=== PATIENT | male | born 1995 | race Caucasian/White ===

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

== ENCOUNTER 2017-01-14 00:30 | Emergency (ER) | payer SELFPAY ==
[~2017-01-14] VITALS: Ht 177.8 cm; Wt 134.7 kg
[2017-01-14] MEDS ORDERED: KETOROLAC 30 MG/1 ML ONE (02:17)
[2017-01-14] MEDS ORDERED: ONDANSETRON 2MG/ML, 2ML ONE (02:17)
[2017-01-14] MEDS ORDERED: MORPHINE SULFATE 4 MG/ML, 1ML ONE (02:17)
[2017-01-14 02:24] LABS: HEMATOCRIT 43.3 % (39.2-51.8); HEMOGLOBIN 14.9 g/dL (13.7-18.0); WHITE BLOOD COUNT 9.8 x10^3/uL (4.5-13.2)
[2017-01-14] MEDS ORDERED: KETOROLAC 30 MG/1 ML IVPush ONE (02:30)
[2017-01-14] MEDS ORDERED: SODIUM CHLORIDE 0.9% 1,000ML IVBOLUS ONE (02:30)
[2017-01-14] MEDS ORDERED: MORPHINE SULFATE 4 MG/ML, 1ML IVPush PRN (02:30)
[2017-01-14] MEDS ORDERED: ONDANSETRON 2MG/ML, 2ML IVPush ONE (02:30)
[2017-01-14 02:36] LABS: ASPARTATE AMINO TRANSFERASE 29 U/L (15-37); BLOOD UREA NITROGEN 20 mg/dL (7-18)
[2017-01-14] MEDS ORDERED: OMNIPAQUE 350 MG/ML, 100ML BOTTLE ONE (03:04)
[2017-01-14 03:52] VITALS: BP 140/88
== END 2017-01-14 03:58 | disposition home or self-care (01) ==
LOC: ED 03:55
DX: I88.0 Nonspecific mesenteric lymphadenitis (principal); R55 Syncope and collapse
CPT/HCPCS: 36415; 74177; 80053; 81001; 83690; 85025; 87086; 96361; 96374; 96375; 99285; J1885; J2405; J7030; Q9967

== ENCOUNTER 2017-08-19 14:24 | Emergency (ER) | payer MEDICAID, OTHER ==
[~2017-08-19] VITALS: Ht 177.8 cm; Wt 143.0 kg
[2017-08-19 14:34] VITALS: BP 151/82
[2017-08-19] MEDS ORDERED: METHOCARBAMOL 750 MG TABLET ONE (15:37)
[2017-08-19] MEDS ORDERED: IBUPROFEN 200 MG TABLET ONE (15:37)
[2017-08-19] MEDS ORDERED: IBUPROFEN 200 MG TABLET PO ONE (16:00)
[2017-08-19] MEDS ORDERED: METHOCARBAMOL 750 MG TABLET PO ONE (16:00)
== END 2017-08-19 16:07 | disposition home or self-care (01) ==
LOC: ED 16:01
DX: S39.012A Strain of muscle, fascia and tendon of lower back, initial encounter (principal); X58.XXXA Exposure to other specified factors, initial encounter; Y93.89 Activity, other specified; Y92.89 Other specified places as the place of occurrence of the external cause; Y99.8 Other external cause status
CPT/HCPCS: 72110; 99284

== ENCOUNTER 2017-09-30 19:32 | Emergency (ER) | payer MEDICAID ==
[~2017-09-30] VITALS: Ht 177.8 cm; Wt 145.3 kg
[2017-09-30 19:50] VITALS: BP 136/89
[2017-09-30] MEDS ORDERED: PROPARACAINE OPHTH 0.5%, 15ML OP ONE (21:30)
[2017-09-30] MEDS ORDERED: CIPROFLOXACIN 500 MG TABLET PO ONE (21:30)
[2017-09-30] MEDS ORDERED: CIPROFLOXACIN 500 MG TABLET ONE (21:31)
[2017-09-30] MEDS ORDERED: PROPARACAINE OPHTH 0.5%, 15ML ONE (21:34)
== END 2017-09-30 21:48 | disposition home or self-care (01) ==
LOC: ED 21:40
DX: H60.333 Swimmer's ear, bilateral (principal); H60.503 Unspecified acute noninfective otitis externa, bilateral
CPT/HCPCS: 99283

== ENCOUNTER 2018-02-09 00:58 | Emergency (ER) | payer MEDICAID, OTHER ==
[~2018-02-09] VITALS: Ht 177.8 cm; Wt 153.7 kg
[2018-02-09 00:59] VITALS: BP 131/57
== END 2018-02-09 01:43 | disposition home or self-care (01) ==
LOC: ED 01:20
DX: H66.002 Acute suppurative otitis media without spontaneous rupture of ear drum, left ear (principal); F17.200 Nicotine dependence, unspecified, uncomplicated
CPT/HCPCS: 99283

== ENCOUNTER 2018-08-07 18:07 | Emergency (ER) | payer MEDICAID ==
[~2018-08-07] VITALS: Ht 177.8 cm; Wt 154.8 kg
[2018-08-07] MEDS ORDERED: DEXAMETHASONE 4 MG TABLET PO ONE (18:30)
[2018-08-07] MEDS ORDERED: DEXAMETHASONE 4 MG TABLET ONE (18:57)
--- NOTE | 2018-08-07 19:01 | NUR ---
MEDICATED PER EMAR UPDATED ON HOME CARE INCLUDING TX AND SXS TO WATCH FOR AT HOME
[2018-08-07 19:06] VITALS: BP 147/92
== END 2018-08-07 19:08 | disposition home or self-care (01) ==
LOC: ED 18:21
DX: J02.0 Streptococcal pharyngitis (principal)
CPT/HCPCS: 99283

== ENCOUNTER 2019-03-29 20:25 | Emergency (ER) | payer MEDICAID ==
[~2019-03-29] VITALS: Ht 177.8 cm; Wt 175.0 kg
[2019-03-29 20:28] VITALS: BP 134/71
[2019-03-29] MEDS ORDERED: NEO/POLY/HC EAR SUSP 10ML LEFT EAR STA (20:52)
== END 2019-03-29 21:03 | disposition home or self-care (01) ==
LOC: ED 20:55
DX: H60.502 Unspecified acute noninfective otitis externa, left ear (principal); F17.210 Nicotine dependence, cigarettes, uncomplicated; E66.01 Morbid (severe) obesity due to excess calories
CPT/HCPCS: 93005; 99283

== ENCOUNTER 2019-06-03 21:29 | Emergency (ER) | payer MEDICAID ==
[~2019-06-03] VITALS: Ht 177.8 cm; Wt 166.7 kg
[2019-06-03 21:33] VITALS: BP 146/102
[2019-06-03] MEDS ORDERED: AMOXICILLIN/CLAV 875-125MG TABLET PO STA (21:57)
[2019-06-03] MEDS ORDERED: DEXAMETHASONE 4 MG TABLET PO STA (21:57)
[2019-06-03] MEDS ORDERED: DEXAMETHASONE 4 MG TABLET ONE (22:08)
[2019-06-03] MEDS ORDERED: AMOXICILLIN/CLAV 875-125MG TABLET ONE (22:08)
--- NOTE | 2019-06-03 22:12 | NUR ---
pt medicated per mar.
--- NOTE | 2019-06-03 22:16 | NUR ---
pt d/c with d/c summary and script. all questions answered. pt ambulates to registration desk with steady gait for d/c home with family. pt denies any other needs pertaining to this visit.
== END 2019-06-03 22:32 | disposition home or self-care (01) ==
LOC: ED 22:00
DX: J02.0 Streptococcal pharyngitis (principal); F17.210 Nicotine dependence, cigarettes, uncomplicated
CPT/HCPCS: 99283; 99406

== ENCOUNTER 2019-07-18 03:24 | Emergency (ER) | payer MEDICAID ==
[~2019-07-18] VITALS: Ht 177.8 cm; Wt 167.8 kg
[2019-07-18 03:26] VITALS: BP 132/92
[2019-07-18] MEDS ORDERED: CARBAMIDE PEROXIDE EAR DROPS 6.5%, 15ML ONE (04:50)
[2019-07-18] MEDS ORDERED: CARBAMIDE PEROXIDE EAR DROPS 6.5%, 15ML LEFT EAR ONE (05:00)
--- NOTE | 2019-07-18 05:34 | NUR ---
EAR WAX REMOVED FROM LEFT EAR VIA EAR IRRIGATION.
== END 2019-07-18 05:47 | disposition home or self-care (01) ==
LOC: ED 05:41
DX: H66.002 Acute suppurative otitis media without spontaneous rupture of ear drum, left ear (principal); H61.22 Impacted cerumen, left ear
CPT/HCPCS: 69209; 99283

== ENCOUNTER 2020-09-11 11:05 | Emergency (ER) | payer MEDICAID ==
[~2020-09-11] VITALS: Ht 177.8 cm; Wt 173.6 kg
[2020-09-11 11:19] VITALS: BP 133/93
--- NOTE | 2020-09-11 12:00 | NUR ---
PT AMBULATES WITH SLOW AND STEADY GAIT WITH FAMILY FROM LOBBY TO ROOM AT THIS TIME.
[2020-09-11] MEDS ORDERED: PROMETHAZINE 25 MG/ML, 1ML IM ONE (12:30)
[2020-09-11] MEDS ORDERED: KETOROLAC 30 MG/1 ML IM ONE (12:30)
[2020-09-11] MEDS ORDERED: ACETAMINOPHEN 325 MG TABLET PO ONE (12:30)
[2020-09-11] MEDS ORDERED: DIPHENHYDRAMINE 25 MG CAPSULE PO ONE (12:30)
[2020-09-11 12:42] LABS: BASOPHILS % (AUTO) 1 % (0-1); EOSINOPHILS % (AUTO) 1 % (1-7); LYMPHOCYTES % (AUTO) 13 % (22-44); MEAN CORPUSCULAR HEMOGLOBIN 30.4 pg (27.5-34.5); MEAN CORPUSCULAR HGB CONC 34.5 g/dL (33.2-36.2); MEAN PLATELET VOLUME 8.1 fL (7.4-10.4); MONOCYTES % (AUTO) 6 % (2-9); NEUTROPHILS % (AUTO) 80 % (42-75); PLATELET COUNT 258 x10^3/uL (130-400); RED BLOOD COUNT 4.86 x10^6/uL (4.38-5.82); RED CELL DISTRIBUTION WIDTH 13.5 % (9.4-14.8)
[2020-09-11] MEDS ORDERED: DIPHENHYDRAMINE 25 MG CAPSULE ONE (12:44)
[2020-09-11] MEDS ORDERED: KETOROLAC 30 MG/1 ML ONE (12:44)
[2020-09-11] MEDS ORDERED: ACETAMINOPHEN 325 MG TABLET ONE (12:44)
[2020-09-11] MEDS ORDERED: PROMETHAZINE 25 MG/ML, 1ML ONE (12:44)
[2020-09-11 12:52] LABS: ALANINE AMINOTRANSFERASE 70 U/L (12-78); ALBUMIN 4.1 g/dL (3.4-5.0); ANION GAP 7 mmol/L (5-15); CALCIUM 9.3 mg/dL (8.5-10.1); CHLORIDE 107 mmol/L (98-107); CREATININE 1.26 mg/dL (0.7-1.3)
--- NOTE | 2020-09-11 12:54 | NUR ---
PT MEDICATED FOR PAIN/NAUSEA PER MAR. PT DENIES ANY NEEDS AT THIS TIME. FAMILY IS AT BS.
[2020-09-11 12:55] LABS: ALKALINE PHOSPHATASE 72 U/L (45-117); BILIRUBIN,TOTAL 0.5 mg/dL (0.2-1.0); TOTAL PROTEIN 7.8 g/dL (6.4-8.2)
--- NOTE | 2020-09-11 14:27 | NUR ---
SUSTAINABILITY PROJECT MANAGER: Patient/Caregiver given discharge instructions and they have confirmed that they understand the instructions. Patient ambulatory with steady gait to wheelchair. All questions answered appropriately, denies additional needs at this time. No personal belongings left in room after discharge.
== END 2020-09-11 14:28 | disposition home or self-care (01) ==
LOC: ED 11:25
DX: E66.01 Morbid (severe) obesity due to excess calories (principal); Z68.43 Body mass index [BMI] 50.0-59.9, adult; R51.9 Headache, unspecified; R11.2 Nausea with vomiting, unspecified; M54.5 Low back pain; Z72.9 Problem related to lifestyle, unspecified; J44.9 Chronic obstructive pulmonary disease, unspecified; I25.10 Atherosclerotic heart disease of native coronary artery without angina pectoris; Z87.891 Personal history of nicotine dependence
CPT/HCPCS: 36415; 80053; 85025; 96372; 99284; J1885; J2550; Q0163